=== PATIENT | male | born 1955 | race Caucasian/White ===

== ENCOUNTER 2017-02-15 17:40 | Emergency (ER) | payer MEDICARE ==
[~2017-02-15] VITALS: Ht 167.6 cm; Wt 77.3 kg
[~2017-02-15 17:40] MED LIST: ACET500C16 PO; APIX5TAB PO; ASPI-628 PO; FAMO20TA4 PO; FURO-3 PO; K20 PO; LOSA1TAB70 PO; PRE10 PO; RANO500T3 PO; REG10 PO; SEN PO; SOTA80TA PO; [UNRECOGNIZED DRUG - OTHER] PO
[2017-02-15 17:43] VITALS: BP 147/54; PULSE 72; RESP 18; O2SAT 96
--- NOTE | 2017-02-15 17:58 | ED.REPORT ---
HPI-Extremity Problem Lower Date of Service February 15, 2017 ED Provider: The patient is a 61 year old male with history of a prior TIA with residual right-sided weakness, coronary artery disease s/p stenting, and hypertension, who was brought to the emergency department by EMS for lower extremity weakness. The patient was seen by his PCP last week for sciatic pain and a headache (x2.5 weeks). He had some OMT and was feeling well after. Today after he got home from work and got out of his car he noticed bilateral lower extremity tingling. He was able to walk up to the door and made it to the couch before both of his legs gave out. At that time he couldn't feel or move his legs. He is now complaining of pelvis pain and continued numbness and weakness. The weakness has improved since onset. He denies headache. Nursing Notes Stated Complaint: LOWER EXTREMITY WEAKNESS Chief Complaint: Neuro Symptoms/ Deficits Nursing Notes Reviewed: Yes Allergies: Coded Allergies: colesevelam HCl (Verified Allergy, Severe, 04/02/13) Iodinated Contrast Media - IV Dye (Verified Allergy, Mild, Nausea, 02/11/14) [place] nauseated, diaphoretic, low oxygen sats. ER physician assessed and determined it to be a contrast reaction. 02/11/14 Hypotension, nausea despite being pre-treated. Radiologist called to room. ceftazidime pentahydrate (Verified Allergy, Unknown, hives, 02/11/14) ciprofloxacin (Verified Allergy, Unknown, 02/11/14) levofloxacin (Verified Allergy, Unknown, 02/11/14) Cmjwgdy-Fdm-Gon Reductase Inhibitor (Verified Adverse Reaction, Intermediate, myalgias, 03/14/13) Scheduled Aspirin (Aspirin) 81 Mg Tablet 81 MG PO DAILY Clopidogrel Bisulfate (Plavix) 75 Mg Tablet 75 MG PO DAILY Diltiazem (Diltiazem) 90 Mg Tablet 180 MG PO MORNING Losartan Potassium (Losartan Potassium) 25 Mg Tablet 12.5 MG PO BID Sotalol HCl (Sotalol) 80 Mg Tablet 80 MG PO MORNING Sotalol HCl (Sotalol) 80 Mg Tablet 40 MG PO QPM General Time Seen by MD: 17:58 Chief Complaint Other (lower extremity numbness and weakness) Hx Obtained From: Patient, EMS Arrived By: Ambulance Onset Occurred: Just prior to arrival Symptom Duration: Since onset Quality: Painful Severity: Current: Moderate Severity: Maximum: Severe Recent Healthcare: No recent hospitalization, Recent doctor visit Similar Sx Previous: No Past Medical History Past Medical History Reports: Coronary artery disease, Hypertension Past Surgical History Endarterectomy Stent placement 2013 Ablation - appointment for redo consultation set for 2013 Family History Reports: Coronary artery disease Smoking History Former Smoker Ambulatory Status Independent Review of Systems Musculoskeletal: Reports: Back pain (pelvis pain) Neurologic: Reports: Focal weakness, Numbness, Problem walking, Denies: Headache Complete sys rev & neg: except as marked. Physical Exam Initial Vital Signs Vital Signs (First) Date Time Temp Pulse Resp B/P Pulse Ox O2 Delivery O2 Flow Rate FiO2 02/15/17 17:43 36.3 72 18 147/54 96 Room Air 02/15/17 20:55 2 Initial VS: Reviewed, Vital signs abnormal Head / Eyes: Atraumatic, Normocephalic, PERRL Neck: Supple, Non-tender, Full range of motion Respiratory: Breath sounds normal, Clear to auscultation, No respiratory distress Cardiovascular: Regular rate & rhythm, Heart sounds normal, Intact distal pulses Abdomen / GI: Soft, Non-tender, No guarding, No rebound, No distention Lymphatic: No lymphadenopathy Upper Extremities: Vascular intact, Neuro intact, No swelling, No tenderness Skin: Warm, Dry, No cyanosis Psychiatric: Mood/affect normal, Behavior normal, Normal thought content Ankle / Foot: Vascular intact General/Constitutional: Awake, Alert, Cooperative Neurologic: Oriented X3, Speech NL Strength to LLE 5/5, RLE was 2/5. Slightly decreased sensation on his LLE. Decreased sensation but could still feel slightly on the right lower extremity. ENT: Airway patent Mouth: Positive: Mucous membranes dry Back: Inspection NL Additional Notes: Tenderness to his right SI joint. Interpretation & Diagnostics LUMBAR SPINE CT IMPRESSION: No fracture. Bilateral hip degeneration as above. Lower lumbar degenerative disc disease. Left inguinal fat-containing hernia. Right inguinal fat and bowel-containing hernia. Dictated by: Luis Enrique Anderson M.D. on 02/15/2017 at 19:19 Lab Results Interpretation Result Diagram: 02/15/17 1835 02/15/17 1835 Test 02/15/17 18:35 02/15/17 18:41 White Blood Count 9.6th/mm3 (3.8-10.1) Red Blood Count 5.26mil/mm3 (4.40-5.80) Hemoglobin 15.6g/dL (13.8-17.2) Hematocrit 46.9% (41.0-50.0) Mean Corpuscular Volume 89.2fL (81-100) Mean Corpuscular Hemoglobin 29.7pg (27.0-35.0) Mean Corpuscular Hemoglobin Concent 33.3% (32.0-37.0) Red Cell Distribution Width 13.5% (12.3-15.4) Platelet Count 170bil/L (150-400) Neutrophils (%) (Auto) 65.4% (40-74) Lymphocytes (%) (Auto) 21.8% (14-46) Monocytes (%) (Auto) 10.6% (4-12) Eosinophils (%) (Auto) 1.2% (0-5) Basophils (%) (Auto) 0.6% (0-3) Erythrocyte Sedimentation Rate 15mm/hr (0-30) Sodium Level 136mEq/L (134-144) Potassium Level 3.7mEq/L (3.5-5.2) Chloride Level 97mEq/L (97-108) Carbon Dioxide Level 20mmol/L (18-29) Blood Urea Nitrogen 15mg/dL (8-27) Creatinine 0.92mg/dL (0.76-1.27) Estimat Glomerular Filtration Rate 88mL/min (>59) Glucose Level 100mg/dL (60-99) Calcium Level 9.8mg/dL (8.5-10.1) Magnesium Level 1.9mg/dL (1.6-2.6) Total Bilirubin 0.3mg/dL (0.0-1.2) Aspartate Amino Transf (AST/SGOT) 16U/L (0-50) Alanine Aminotransferase (ALT/SGPT) 18U/L (0-44) Alkaline Phosphatase 111U/L (25-160) C-Reactive Protein 1.5mg/dL (0.0-0.5) Total Protein 7.2g/dL (6.4-8.4) Albumin 3.7g/dL (3.4-5.0) Hold Urine Received (Received) CT Abd / Pelvis Interpretation IMPRESSION: No fracture. Bilateral hip degeneration as above. Lower lumbar degenerative disc disease. Left inguinal fat-containing hernia. Right inguinal fat and bowel-containing hernia. Dictated by: Luis Enrique Anderson M.D. on 02/15/2017 at 19:19 Interpretation / Wet Read by: Interpret - Radiologist Re-Eval/Medical Decision Med Decision/Clinical Course The patient presents with bilateral extremity numbness and weakness with back pain. He initially had a CT which showed significant stenosis. I then ordered an MRI to look at his cord, the patient stated his symptoms were pretty much resolved and he wanted to go home. Explained to him that he needs to have an MRI to see me have some acute surgical process. He did not wish to have MRI tonight and stated I could admit him for observation. I explained to him that we needed the study because he may need to be transferred. He refused. I explained he could have a life-changing type of compression that could permanently disable him, he decided to go home. The patient was then discharged and stated his symptoms were returning, as explained to him that should check back in and have his MRI again refused. Differential diagnoses considered were epidural abscess, cord compression, and transverse myelitis. Source of Hx: Old records, EMS Re-Evaluation/Progress #1: Time of Eval: 18:09 Re-Evaluation/Progress Note: He is now able to move his right leg completely and his left leg slightly. His sensation is also returning. Re-Evaluation/Progress #2: Time of Eval: 20:01 Re-Evaluation/Progress Note: The patient is feeling better. Re-Evaluation/Progress #3: Time of Eval: 21:09 Re-Evaluation/Progress Note: Rechecked the patient. He is feeling better and would not like to wait for the MRI. I explained the risks of leaving before the MRI is done. At this time he only complains of right groin pain and numbness to the bottom of his foot. On re-examination he has equal strength to his lower extremities, no groin tenderness. Counseled Regarding: Diagnosis, Lab results, Need for follow-up, When/why to return to ED Discharge & Departure Impression: Primary Impression: Radiculopathy Spinal region: sacral Qualified Code: M54.18 - Radiculopathy, sacral and sacrococcygeal region Additional Impression: Sacroiliac pain Disposition: Home Discharge Condition All VS Reviewed: Yes Condition: Stable Patient Instructions: Lumbar Radiculopathy (GEN) Additional Instructions: Thank you for entrusting us with your care today. It is very important that you have an MRI. You could have a serious abnormality that could lead to paralysis or loss of bowel/bladder function, or permanent disabilities. Call your primary doctor tomorrow to schedule a followup appointment for an MRI. Seek care sooner for increased pain, numbness or weakness, fever, vomiting, or any other new or concerning symptoms. Referrals: Lamont Wahl MD (PCP) Scribe Attestation Portions of this note were transcribed by Shelly Jacques. I, Dr. Dash personally performed the history, physical exam and medical decision-making; I reviewed and confirmed the accuracy of the information in the transcribed note. Signed by: Maite Zimmerman, 02/15/2017 at 2130. copies to: Lamont Wahl MD, Jena M MD February 15, 2017 17:58 Shelly Jacques February 15, 2017 18:09
[2017-02-15] MEDS ORDERED: 0.9% Sodium Chloride 1,000 ML IV ONE (18:20)
[2017-02-15] MEDS: HYDROmorphone 0.5 mg/0.5 mL iSecure Syringe IVPUSH PRN ×2 (18:36→19:36)
[2017-02-15 18:41] LABS: BASOPHILS % (AUTO) 0.6 % (0-3); EOSINOPHILS % (AUTO) 1.2 % (0-5); MONOCYTES % (AUTO) 10.6 % (4-12); Mean Corpuscular Hemoglobin 29.7 pg (27.0-35.0); Mean Corpuscular Volume 89.2 fL (81-100); NEUTROPHILS % (AUTO) 65.4 % (40-74); Platelet Count 170 bil/L (150-400)
[2017-02-15 18:55] LABS: ERYTHROCYTE SEDIMENTATION RATE 15 mm/hr (0-30)
[2017-02-15 18:59] LABS: Magnesium 1.9 mg/dL (1.6-2.6)
--- NOTE | 2017-02-15 19:24 | DRSVH ---
PROCEDURE: CT PELVIS WITHOUT CONTRAST ([id number]) INDICATIONS: pelvic pain with numbness and weakness TECHNIQUE: Noncontrast 3 mm axial sections acquired through the bony pelvis, with coronal and sagittal reformatt ing. COMPARISON: None. FINDINGS: Image quality: Excellent. Bones: No fracture or focal osseous destruction. Bilateral mild hip joint degeneration with symmetric appearing subchondral cystic change and spurring. There is also lower lumbar disc degeneration with endplate irregularity and spurring. Soft tissues: Bilateral inguinal hernias containing fat, and bowel on the right however no dilatation to suggest obstruction. Vascular stent is seen in the left groin. There is aortobiiliac vascular bianca nt. IMPRESSION: No fracture. Bilateral hip degeneration as above. Lower lumbar degenerative disc disease. Left inguinal fat-containing hernia. Right inguinal fat and bowel-containing hernia. Dictated by: Luis Enrique Anderson M.D. on 02/15/2017 at 19:19 Approved by: Luis Enrique Anderson M.D. on 02/15/2017 at 19:22
--- NOTE | 2017-02-15 19:29 | DRSVH ---
PROCEDURE: CT LUMBAR SPINE WITHOUT CONTRAST ([id number]) INDICATIONS: LEG NUMBNESS AND WEAKNESS TECHNIQUE: Noncontrast 3 mm thick sections acquired from the T12 level to the sacrum. Sagittal and coronal refo rmats were constructed. For radiation dose reduction, the following was used: automated exposure co ntrol. COMPARISON: [facility], CT, CT PELVIS WO CON, 02/15/2017, 19:05. FINDINGS: Image quality: Excellent. Bones: There is normal bony alignment. No acute vertebral body compression fractures. No suspiciou s lytic or blastic bony lesions. Central spinal caliber is of normal overall caliber. No pars defec ts. On the left, there is mild L3-L4, L4-L5 and L5-S1 bony foraminal stenosis. On the right, there is moderate L4-L5 and mild bony L5-S1 foraminal stenosis. Moderate L3-L4 canal narrowing. Moderate to severe L4-L5 canal stenosis. Mild L5-S1 canal narrowing. Diffuse severe bilateral facet arthropathy, endplate spurring and sclerosis. There is vacuum disc phe nomenon from L3-S1. Soft tissues: No retroperitoneal masses or hematomas. There are aortobiiliac vascular stents IMPRESSION: No fracture. Moderate L4-L5, and moderate to severe L4-L5 canal stenoses. Mild left L3-L4, L4-L5, and L5-S1 foraminal stenoses Moderate L4-L5 and mild L5-S1 right foraminal stenoses Dictated by: Luis Enrique Anderson M.D. on 02/15/2017 at 19:23 Approved by: Luis Enrique Anderson M.D. on 02/15/2017 at 19:28
[2017-02-15 20:28] VITALS: BP 140/60; PULSE 102; RESP 19; O2SAT 94
[2017-02-15] MEDS ORDERED: CLOP75TA3 PO (20:36)
[2017-02-15] MEDS ORDERED: DILT90TA PO (20:36)
[2017-02-15] MEDS ORDERED: SOTA80TA PO ×2 (20:36)
[2017-02-15] MEDS ORDERED: ASPI-973 PO (20:36)
[2017-02-15] MEDS ORDERED: LOSA25TA21 PO (20:36)
[2017-02-15 20:55] VITALS: BP 143/56; PULSE 82; RESP 14; O2SAT 98
[2017-02-15 22:09] VITALS: BP 156/40; PULSE 82; RESP 19; O2SAT 94
== END 2017-02-15 22:10 | disposition home or self-care (01) ==
LOC: SED 17:40
DX: M54.18 Radiculopathy, sacral and sacrococcygeal region (principal); M53.3 Sacrococcygeal disorders, not elsewhere classified; I11.9 Hypertensive heart disease without heart failure; I25.10 Atherosclerotic heart disease of native coronary artery without angina pectoris; Z79.82 Long term (current) use of aspirin; Z95.5 Presence of coronary angioplasty implant and graft; Z87.891 Personal history of nicotine dependence; Z88.1 Allergy status to other antibiotic agents; Z88.8 Allergy status to other drugs, medicaments and biological substances
CPT/HCPCS: 36415; 72131; 72192; 80053; 83735; 85025; 85651; 86140; 86850; 96361; 96374; 96376; 99285; J1170; J7030